=== PATIENT | female | born 1955 | race Caucasian/White ===

== ENCOUNTER 2019-02-28 12:35 | Outpatient (CLI) | payer MEDICARE ==
--- NOTE | 2019-02-28 13:55 | MRI ---
MRI LEFT KNEE: 02/28/19 PROVIDED CLINICAL HISTORY: Pain status post injury. FINDINGS: The anterior cruciate ligament, posterior cruciate ligament, medial collateral ligament and lateral c ollateral ligamentous complex demonstrate an intact MR appearance, as does the extensor mechanism. The medial and lateral menisci demonstrate no definite evidence for tear. There is a comminuted, depressed fracture of the posterior lateral tibial plateau with extension to i nvolve the tibial eminence. There is propagation of fracture to involve the proximal tibial metadiaph yseal region, the inferior aspects of which are incompletely visualized. There is a mild knee joint effusion with Dumont's cyst formation. Regional muscular signal appears unr emarkable. IMPRESSION: 1. Comminuted depressed lateral tibial plateau fracture, the inferior extent of which is not vis ualized. 2. Mild knee joint effusion with Dumont's cyst formation. POS: [facility]
== END 2019-02-28 12:36 | disposition home or self-care (01) ==
LOC: MRI 12:35
PROVIDERS: ATTEND Family Medicine
DX: S82.142D Displaced bicondylar fracture of left tibia, subsequent encounter for closed fracture with routine healing (principal); M25.462 Effusion, left knee; M71.22 Synovial cyst of popliteal space [Baker], left knee